=== PATIENT | male | born 1935 | race Caucasian/White ===

== ENCOUNTER 2020-03-06 18:39 | Inpatient (IN) | payer MEDICARE ==
[~2020-03-06] VITALS: Ht 167.6 cm; Wt 80.3 kg
[2020-03-06 19:03] VITALS: BP 239/83
[2020-03-06 19:41] LABS: ABSOLUTE MONOCYTES 0.5 thou/uL (0.0-1.2); ABSOLUTE NEUTROPHILS 3.1 thou/uL (1.6-8.1); BASOPHILS 0.7 %; EOSINOPHILS 0.8 %; HEMATOCRIT 37.5 % (42.0-52.0); HEMOGLOBIN 12.9 gm/dL (14.0-18.0); LYMPHOCYTES 35.1 %; MCH 33.8 pg (26.0-34.0); MCHC 34.4 g/dL (28.0-37.0); MONOCYTES 9.3 %; MPV 6.9 fl. (7.2-11.1); NUCLEATED RBCS 0 /100WBC; PLATELET COUNT* 196 thou/uL (150-400); POLYS 54.1 %; RBC 3.83 mil/uL (4.50-6.00); RDW-CV 13.2 % (10.5-14.5); WBC 5.7 thou/uL (4.0-11.0)
[2020-03-06 19:48] LABS: URINE BILIRUBIN NEGATIVE (Negative); URINE BLOOD TRACE (Negative); URINE CLARITY CLEAR; URINE COLOR YELLOW; URINE GLUCOSE-RANDOM NEGATIVE (Negative); URINE KETONES 1+ (Negative); URINE PROTEIN NEGATIVE (Negative); URINE UROBILINOGEN 0.2 E.U./dl (0.2-1.0)
[2020-03-06 19:49] LABS: URINE LEUKOCYTES-REFLEX 2+ (Negative); URINE NITRITE-REFLEX POSITIVE (Negative)
[2020-03-06 19:53] LABS: SQUAMOUS 0-3 Few /LPF (0-3); URINE WBC-REFLEX >25 Many /HPF (0-5); WBC CLUMPS Few (None Seen)
[2020-03-06 19:53] LABS: CALCIUM 8.8 mg/dL (8.5-10.1); POTASSIUM 4.4 mmol/L (3.5-5.1)
[2020-03-06 19:54] LABS: APTT 24.7 Seconds (25.0-31.3); PROTIME 10.7 Seconds (9.20-11.50)
[2020-03-06 19:54] LABS: BACTERIA-REFLEX >30 Many /HPF (None Seen); CASTS None Seen /LPF (None Seen); CRYSTALS None Seen /LPF (None Seen); MUCUS 0-3 Light strn/LPF (None Seen); URINE RBC 0-2 Rare /HPF (0-2)
[2020-03-06 20:04] LABS: ALBUMIN 3.7 g/dL (3.4-5.0); TOTAL BILIRUBIN 0.5 mg/dL (<0.1-1.0); TOTAL PROTEIN 7.3 g/dL (6.4-8.2)
[2020-03-06 21:43] VITALS: BP 198/72
[2020-03-07] VITALS (8 sets, daily range): BP systolic 128–205; BP diastolic 46–79
[2020-03-07] MEDS ORDERED: VITAMIN E400 UNIT PO (01:45)
[2020-03-07] MEDS ORDERED: FLOMAX0.4 MG PO (01:45)
[2020-03-07] MEDS ORDERED: MIRALAX119 GM PO (01:46)
[2020-03-07] MEDS ORDERED: FISH OIL 1,001000 M3 PO (01:46)
[2020-03-07] MEDS ORDERED: ONE DAILY COMP1 EAC1 PO (01:47)
[2020-03-07] MEDS ORDERED: LISINOPRIL10 MG PO (01:48)
[2020-03-07] MEDS ORDERED: OSTEO BI-FLEX1 EAC1 PO (01:50)
[2020-03-07] MEDS ORDERED: GARLIC400 MG PO (01:51)
[2020-03-07] MEDS ORDERED: FLAXSEED1000 MG PO (01:51)
[2020-03-07] MEDS ORDERED: VITAMIN D325 MC1 PO (01:54)
[2020-03-07] MEDS ORDERED: CHILDREN'S ASPI81 MG PO (01:55)
[2020-03-07] MEDS ORDERED: C-10001000 MG PO (01:56)
[2020-03-07] MEDS ORDERED: FUROSEMIDE 20 M20 MG PO (02:00)
[2020-03-07] MEDS ORDERED: ARTIFICIAL TEA1 EACH EA. EYE (02:01)
[2020-03-07] MEDS ORDERED: TYLENOL ARTHRI650 MG PO (02:02)
--- NOTE | 2020-03-07 03:57 | NUR ---
PATIENT PROGRESSING TOWARDS GOALS: PATIENT'S BLOOD PRESSURE IMPROVED WITH MEDICATION ADMINISTRATION. PATIENT DENIES PAIN AND DISCOMFORT. HE IS PRODUCING URINE NOW, PATIENT STATES HE HAD NOT BEEN PRODUCING URINE MUCH. CALL LIGHT WITHIN REACH
--- NOTE | 2020-03-07 09:58 | EKG ---
[place] [address] ELECTROCARDIOGRAM REPORT Name: SUNIL ZULUAGA Room: [address] ADM IN [facility].#: [id number] Admission: 03/06/20 Attend Phys: Ava Matos, Discharge: Date of : 33 Date of Service: 03/06/20 1854 Report #: [id number] THIS REPORT FOR: //name// [facility] ED Test Date: 2020-03-06 Test Time: 18:54:02 Pat Name: SUNIL ZULUAGA Department: Room: [facility] Gender: M Assistant Community Manager: CCD : 1935 Requested By: Milan Canales Order Number: [id number] MD: Steve Tran Measurements Intervals [place] Rate: 72 P: -17 ME: 224 QRS: -69 QRSD: 171 T: 99 QT: 455 QTc: 499 Interpretive Statements Ventricular-paced rhythm No further analysis attempted due to paced rhythm No previous ECG available for comparison Electronically Signed On 03-07-2020 9:58:47 CDT by Steve Tran [email or web address] <ELECTRONICALLY SIGNED> By: Steve Tran MD, FAC 03/07/20 0958 1854 1854 Steve Tran MD, [facility] /EPI
--- NOTE | 2020-03-07 16:18 | NUR ---
Pt is A&O. Resides at [facility] and plans to return [place]. Pt is independent, son or facility provides transportation. Pt uses a walker for mobility. Hx of [facility] and Pt wants HH at [place].No hx of SNF. CM to contact Pt's son to discuss dispo. Pt on IVABX, anticipate dc in a few days.
[2020-03-08] VITALS (7 sets, daily range): BP systolic 127–197; BP diastolic 49–85
[2020-03-08 05:10] LABS: CALCIUM 8.6 mg/dL (8.5-10.1); CREATININE 0.8 mg/dL (0.6-1.3); POTASSIUM 4.1 mmol/L (3.5-5.1)
--- NOTE | 2020-03-08 06:45 | NUR ---
PATIENT RECEIVED A SHOWER THIS MORNING AND STATES HE IS "FEELING A LITTLE BETTER." PATIENT HAVING GOOD URINE OUTPUT FROM SUPRAPUBIC CATHETER. NO EPISODES OF DIARRHEA. PATIENT DENIES PAIN. CALL LIGHT WITHIN REACH
--- NOTE | 2020-03-08 08:03 | NUR ---
ASSUMED PT. CARE AND RECEIVED REPORT AT 0730. PT. A/OX4, BP ELEVATED AT 172/57, ALL OTHER VSS. MONITOR ON TRACING AVPACED. PT. DENIES CURRENT PAIN/SOB/NAUSEA. FULL ASSESMENT COMPLETED, REFER TO CHARTING. PT. ENCOURAGED TO GET UP TO CHAIR FOR MEALS AND INCREASE ACTIVITY LEVEL TODAY. CALL LIGHT IN REACH, FALL PRECAUTIONS IN PLACE.
--- NOTE | 2020-03-08 15:57 | NUR ---
CM spoke with Pt's son, plan dc home with [facility] at dc. Son to provide transportation. Pt's sees Bre Santoyo NP under the supervision of Dr Bills at [facility]. Continue IVABX. M/s status.
[2020-03-09] VITALS (7 sets, daily range): BP systolic 97–177; BP diastolic 46–77
[2020-03-09 06:31] LABS: CALCIUM 8.2 mg/dL (8.5-10.1); CREATININE 0.8 mg/dL (0.6-1.3)
--- NOTE | 2020-03-09 07:54 | NUR ---
PT CARE ASSUMED AT 1930. SAT MAINTAINED IN RA. ALERT AND ORIENTED X 4 BUT FORGETFUL. DENIES PAIN AND SOB. CALL LIGHT WITHIN REACH AND BED IN LOW POSITION. HOURLY ROUNDING DONE FOR PT SAFETY.
[2020-03-09] MEDS ORDERED: CIPRO500 MG PO (10:14)
[2020-03-09] MEDS ORDERED: METRONIDAZOLE500 M4 PO (10:14)
--- NOTE | 2020-03-09 11:42 | NUR ---
ASSUMED CARE OF PATIENT THIS AM AT 0730. PATIENT IS ALERT AND ORIENTED X 4. HE APPEARS VERY ANXIOUS TODAY. PATIENT ASSISTED WITH ADLS THROUGHOU THE DAY. TELE SHOWS V PACED RHYTHM. VASYL CONTINUE TO MONITOR VS AND ASSESSMENT. NO FALLS OR INJURY
--- NOTE | 2020-03-09 12:16 | NUR ---
NOTIFIED RN OF CONCERN THAT PT. IS GETTING UP EVERY 2 HOURS TO EMPTY HIS SUPRAPUBIC CATHETER. PT. ACTED LIKE IT WAS GOOD TO GET UP SINCE IT HAS BEEN RECOMMENDED TO GET UP EVERY HOUR TO PREVENT BLOOD CLOTS. O.T. ATTEMPTED TO EDUCATE THAT IT IS IMPORTANT TO SLEEP AND THAT HE MAY WANT TO USE A LEG BAG INSTEAD. HE SAYS HE WOULD BE TOO FRUSTERATED WITH A LEG BAG.
--- NOTE | 2020-03-09 12:37 | NUR ---
Pt discharging to home today, faxed orders to [facility]. Son to transport
== END 2020-03-09 18:20 | disposition home health service (06) | DRG 689 ==
LOC: M.ERS 18:39 → M.TBA-ER 20:38 → M.2W 20:38
PROVIDERS: Family Medicine; Internal Medicine; ADMIT Internal Medicine; ATTEND Internal Medicine
DX: N39.0 Urinary tract infection, site not specified (principal); G92 Toxic encephalopathy; K52.1 Toxic gastroenteritis and colitis; E87.1 Hypo-osmolality and hyponatremia; I16.1 Hypertensive emergency; Z20.828 Contact with and (suspected) exposure to other viral communicable diseases; T36.95XA Adverse effect of unspecified systemic antibiotic, initial encounter; I10 Essential (primary) hypertension; M51.35 Other intervertebral disc degeneration, thoracolumbar region; M51.25 Other intervertebral disc displacement, thoracolumbar region; B96.89 Other specified bacterial agents as the cause of diseases classified elsewhere; R33.9 Retention of urine, unspecified; Z88.8 Allergy status to other drugs, medicaments and biological substances; Z79.899 Other long term (current) drug therapy; Z79.82 Long term (current) use of aspirin; Z98.49 Cataract extraction status, unspecified eye; Z95.0 Presence of cardiac pacemaker; Y92.89 Other specified places as the place of occurrence of the external cause